=== PATIENT | female | born 1990 | race Caucasian/White ===

== ENCOUNTER → 2016-11-16 | Outpatient (CLI) | payer OTHER ==
[~2016-11-16] MED LIST: KCL10C PO; MACR100C PO; PROM25SU8 PO; ZOFR4TAB3 SL
[2016-11-16 21:39] LABS: CHLAMYDIA PCR NOT DETECTED (NOT DETECT); NEISSERIA PCR NOT DETECTED (NOT DETECT)
== END ==
LOC: CLAB 13:28
PROVIDERS: ATTEND Obstetrics & Gynecology
DX: Z11.3 Encounter for screening for infections with a predominantly sexual mode of transmission (principal)
CPT/HCPCS: 87491; 87591

== ENCOUNTER 2017-11-18 15:32 | Emergency (ER) | payer OTHER ==
[~2017-11-18] VITALS: Ht 167.6 cm; Wt 68.0 kg
[~2017-11-18 15:32] MED LIST changes: +IBUP200C PO; -KCL10C PO; -MACR100C PO; -PROM25SU8 PO; +ZITHTAB PO; -ZOFR4TAB3 SL
[2017-11-18 15:36] VITALS: BP 138/85; PULSE 66; RESP 18; TEMP 98.5; O2SAT 100
--- NOTE | 2017-11-18 16:07 | RADRPT ---
EXAM DATE/TIME: 11/18/2017 15:49 [place] COMPARISON: No previous studies available for comparison. INDICATIONS : Right knee pain and swelling. No prior trauma. MEDICAL HISTORY : None. SURGICAL HISTORY : None. ENCOUNTER: Initial ACUITY: 1 week PAIN SCORE: 10/10 LOCATION: Right knee. FINDINGS: Four view examination of the right knee demonstrates no evidence of fracture or dislocation. Bony mi neralization is normal. The articular surfaces are intact. The suprapatellar soft tissues have a no rmal configuration. CONCLUSION: 1. Negative examination. Osorio Clements MD on November 18, 2017 at 16:05 Board Certified Radiologist. This report was verified electronically.
[2017-11-18] MEDS ORDERED: NAPR500 PO (16:49)
--- NOTE | 2017-11-18 16:49 | PD ---
HPI Chief Complaint: Injury Time Seen by Provider: 16:38 Travel History International Travel<30 days: No Contact w/Intl Traveler<30days: No Traveled to known affect area: No History of Present Illness HPI Patient comes to the emergency department complaining of right knee pain ongoing for a week. Patient describes pain as burning-like throughout her knee. Pain is worse with flexion of her right knee. Patient is tried using Tristian wrap with minimal to no relief along with ibuprofen. Patient denies any radiation of the pain. Patient denies any known injury. 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 Denies , numbness or tingling, IV drug use, or fevers. PFSH Past Medical History Medical History: Denies Significant Hx Diminished Hearing: No ?: Not : 1 Social History Alcohol Use: No Tobacco Use: No Substance Use: No Allergies-Medications (Allergen,Severity, Reaction): Coded Allergies: No Known Allergies (Unverified Adverse Reaction, Unknown, 07/05/17) Reported Meds & Prescriptions Reported Meds & Active Scripts Active Naprosyn (Naproxen) 500 Mg Tab 500 Mg PO Q12HR PRN Zithromax Z-Josh (Azithromycin) 250 Mg Dspk 250 Mg PO DIRECTED 500 MG (2 tabs) day 1, then 1 tab days 2-5. Reported Ibuprofen 200 Mg Cap 200 Mg PO Q6H PRN Review of Systems Except as stated in HPI: all other systems reviewed are Neg Physical Exam Narrative GENERAL: Well-developed, well nourished, in no acute distress, and non-ill appearing. SKIN: Focused skin assessment warm and dry. HEAD: Atraumatic. Normocephalic. EYES: Pupils equal and round. EOMI. No scleral icterus. No injection or drainage. ENT: No nasal bleeding or discharge. Mucous membranes pink and moist. NECK: Trachea midline. Supple. No nuclear rigidity. CARDIOVASCULAR: Dorsal pulses 2+, intact, and equal bilaterally. Capillary refill less than 2 seconds. RESPIRATORY: No accessory muscle use. No respiratory distress. MUSCULOSKELETAL: No obvious deformities. No clubbing. No cyanosis. No edema. Full range of motion. Knee: Negative patellar apprehension, varus and valgus maneuvers, anterior draw test, and Sandrine test. Pulses equal BL distal to injury. Capillary refill less than 2 seconds distal to injury and equal BL. FROM distal to injury and equal BL. Strength distal to injury equal BL. NV intact distal to injury. Dorsal pulses equal BL. Sensation equal BL 1st web space. Patient reports tenderness to palpation over anterior lateral aspect of right knee. No soft tissue swelling noted. No crepitus. NEUROLOGICAL: Awake and alert. No obvious cranial nerve deficits. Motor grossly within normal limits. Normal speech. PSYCHIATRIC: Appropriate mood and affect; insight and judgment normal. Data Data Last Documented VS Vital Signs Date Time Temp Pulse Resp B/P (MAP) Pulse Ox O2 Delivery O2 Flow Rate FiO2 11/18/17 15:36 98.5 66 18 138/85 (102) 100 Orders Orders Knee, Complete (4vws) (11/18/17 ) Ed Discharge Order (11/18/17 16:45) Splint Or Brace Apply/Monitor (11/18/17 16:45) [employer] Request For Service (11/18/17 16:45) Immobilizer Knee 20 Inch (11/18/17 ) [facility] Medical Decision Making Medical Screen Exam Complete: Yes Emergency Medical Condition: Yes Interpretation(s) Last Impressions Knee X-Ray 11/18/17 0000 Signed Impressions: Service Date/Time: Saturday, November 18, 2017 15:49 - CONCLUSION: 1. Negative examination. Osorio Clements MD Differential Diagnosis Fracture, sprain, contusion, dislocation Narrative Course There is no clinical evidence to suspect bony injury by exam. Radiographic examination revealed no fracture seen at this time. No obvious ligamental injury or obvious internal derangement is noted at this time. The anterior, posterior, lateral and medial collateral ligaments are intact and symmetrical. The distal extremity appears neurovascularly intact, without evidence of neurovascular injury nor compartment syndrome. Tendon exam also was intact. The effected limb was immobilized. The patient was discharged on pain medication along with sprain and splint care instructions and given warnings for vascular compromise. The patient is to follow up with Orthopedics. The patient agrees with plan. Patient in no obvious distress upon re-evaluation. All pertinent Radiology result(s) discussed with patient. Patient was asked if they wanted to speak to my attending, which the patient did not wish to do at this time. Any questions/ concerns in reference to patient diagnosis/condition discussed and clarified prior to patient's discharge. Reinforced sheer importance of close follow up with patient's primary physician or primary care clinic and/or orthopedics. Instructed patient to return to ED immediately, if symptoms return/worsen. Patient showed understanding of above instructions. Further instructions and recommendations were detailed in discharge paperwork. Patient ambulated without difficulty out of ED at discharge. Diagnosis Primary Impression: Right knee pain Qualified Codes: M25.561 - Pain in right knee Referrals: Marcos Byrne Jr., MD [facility] Patient Instructions: General Instructions, Knee Immobilizer (ED), Knee Pain ( ED), Knee Sprain (DC) Additional Instructions: Follow-up with your primary care physician and/or orthopedics this week for reevaluation. Take all medication as prescribed. Wear knee immobilizer while awake until reevaluated. Apply ice to affected area 20 minutes prior as needed for pain. Return to the emergency department if symptoms get worse. Med/Other Pt SpecificInfo: Prescription(s) given Scripts Naproxen (Naprosyn) 500 Mg Tab 500 MG PO Q12HR Y for PAIN SCALE 1 TO 10, #14 TAB 0 Refills Prov: Alessia Kiran MD 11/18/17 Disposition: 01 DISCHARGE HOME Condition: Stable Felipe Fernandez Nov 18, 2017 16:49
== END 2017-11-18 17:28 | disposition home or self-care (01) ==
LOC: NEPD 15:32
DX: M25.561 Pain in right knee (principal)
CPT/HCPCS: 73564; 99283; L1830